=== PATIENT | female | born 1965 | race African-American/Black ===

== ENCOUNTER 2019-02-08 08:48 | Inpatient (IN) | payer BC ==
[2019-01-29 12:41] VITALS: BMI 27.2
--- NOTE | 2019-02-08 08:02 | HP ---
Admitting History and Physical - Admission Chief Complaint: failed right total knee arthroplasty History of Present Illness: 53 year old female presents in regard to her right knee. Status post a right knee arthroplasty. She notes continued pain, difficulty ambulating and difficulty completing activities of daily living. Patient has failed conservative treatment options including PO medications, injections , exercise programs and activity modifications. At this point, patient would like to proceed with recision right total knee arthroplasty. History Source: Patient - Past Medical History Cardiovascular: Yes: HTN ...LMP Comment: LMP 3 years ago Heme/Onc: Yes: Other (H/o breast CA) Musculoskeletal: Yes: Osteoarthritis - Past Surgical History Additional Past Surgical History: right total knee arthroplasty See written history & physical. - Advance Directives Advance Directives: Yes: Living Will, Health Care Proxy, Organ Donor - Smoking History Smoking history: Never smoked Have you smoked in the past 12 months: No - Alcohol/Substance Use Hx Alcohol Use: No Home Medications - Allergies Allergies/Adverse Reactions: Allergies Allergy/AdvReac Type Severity Reaction Status Date / Time diazepam [From Valium] Allergy somnolence Verified 01/29/19 12:54 metoclopramide [From Reglan] Allergy contraction Verified 01/29/19 12:50 ,spasticity Penicillins Allergy Hives Verified 01/29/19 12:54 - Home Medications Home Medications: Ambulatory Orders Aspirin [ASA -] 81 mg PO PRN 01/29/19 Biotin 1,000 mcg PO DAILY 01/29/19 Carvedilol [Coreg -] 25 mg PO BID 01/29/19 Letrozole [Femara -] 2.5 mg PO DAILY 01/29/19 Spironolactone 50 mg PO DAILY 01/29/19 Review of Systems - Review of Systems Musculoskeletal: reports: Decreased ROM (right knee), Joint Pain (right knee), Joint Swelling (right knee) Physical Examination Constitutional: Yes: Well Nourished, No Distress Eyes: Yes: Conjunctiva Clear HENT: Yes: Atraumatic Neck: Yes: Supple Cardiovascular: Yes: Regular Rate and Rhythm Respiratory: Yes: Regular Gastrointestinal: Yes: Soft ...Rectal Exam: Yes: Deferred Musculoskeletal: Yes: Joint Stiffness (right knee), Joint Swelling (right knee) Assessment/Plan 53 year old female presents in regard to her right knee. Status post a right knee arthroplasty. She notes continued pain, difficulty ambulating and difficulty completing activities of daily living. Patient has failed conservative treatment options including PO medications, injections , exercise programs and activity modifications. At this point, patient would like to proceed with recision right total knee arthroplasty. Pros, cons, risks, benefits and alternatives of a revision right total knee arthroplasty were discussed with the patient at length. Patient confirms her understanding and consents to proceed with a revision right total knee arthoplasty.
[~2019-02-08 08:48] MED LIST: CELECOXIB 200 MG CAPSULE PO ONE; GABAPENTIN 300 MG CAPSULE (FP) PO ONE; PANTOPRAZOLE 40 MG TABLET (FP) PO ONE; ROPIVICAINE 0.2%/MORPH PF/KETOROLAC - 51ML DISP.SYRINGE IA ONE; TRANEXAMIC ACID 1000 MG/10 ML VIAL IVPUSH ONE; oxyCODONE HCL 10 MG SUSTAINED ACTING TABLET PO ONE
[2019-02-08] MEDS ORDERED: PANTOPRAZOLE 40 MG TABLET (FP) ONE (09:10)
[2019-02-08] MEDS ORDERED: oxyCODONE HCL 10 MG SUSTAINED ACTING TABLET ONE (09:10)
[2019-02-08] MEDS ORDERED: GABAPENTIN 300 MG CAPSULE (FP) ONE (09:11)
[2019-02-08] MEDS ORDERED: CELECOXIB 200 MG CAPSULE ONE (09:11)
[2019-02-08] MEDS ORDERED: BUPIVACAINE LIPOSOME/PF (EXPAREL) 266 MG/20 ML VIAL ONE ×2 (10:30→11:41)
[2019-02-08] MEDS ORDERED: MIDAZOLAM HCL 2 MG/2 ML SINGLE DOSE VIAL ONE ×8 (10:30→17:24)
[2019-02-08] MEDS ORDERED: SODIUM CHLORIDE 0.9% P/F 10 ML VIAL IJ ONE ×2 (10:31→16:54)
[2019-02-08] MEDS ORDERED: CEFAZOLIN 2 GM in DEXTROSE 5%-WATER - 50 ML IVPB ONE (11:37)
[2019-02-08] MEDS ORDERED: TRANEXAMIC ACID 1000 MG/10 ML VIAL ONE ×3 (11:38→12:37)
[2019-02-08] MEDS ORDERED: ceFAZolin SODIUM 1 GM VIAL ONE ×4 (11:39→18:08)
[2019-02-08] MEDS ORDERED: VANCOMYCIN 1,000 MG VIAL (RESTRICTED TO ID ONLY) ONE (11:39)
[2019-02-08] MEDS ORDERED: BUPIVACAINE HCL/PF (5 MG/ML) 30 ML VIAL IJ ONE (11:42)
[2019-02-08] MEDS ORDERED: PROPOFOL 20 ML ONE (12:36)
[2019-02-08] MEDS ORDERED: ePHEDrine SULFATE 50 MG/1 ML AMPULE ONE ×2 (12:36→12:39)
[2019-02-08] MEDS ORDERED: SUCCINYLCHOLINE CHLORIDE 200 MG/10 ML VIAL ONE (12:36)
[2019-02-08] MEDS ORDERED: ONDANSETRON 4 MG/2 ML VIAL ONE (12:37)
[2019-02-08] MEDS ORDERED: DEXAMETHASONE SOD PHOSPHATE 4 MG/1 ML VIAL ONE (12:37)
[2019-02-08] MEDS ORDERED: PHENYLEPHRINE HCL 10 MG/1 ML SINGLE DOSE VIAL ONE (16:54)
[2019-02-08] MEDS ORDERED: BUPIVACAINE HCL/PF 0.5% (5MG/ML) 10 ML VIAL ONE (18:30)
[2019-02-08] MEDS ORDERED: METOPROLOL TARTRATE 5 MG/5 ML VIAL ONE (19:28)
[2019-02-08] MEDS ORDERED: ONDANSETRON 4 MG/2 ML VIAL IVPUSH PRN ×2 (19:35→20:18)
[2019-02-08] MEDS ORDERED: oxyCODONE HCL 5 MG TABLET PO PRN ×2 (19:35)
[2019-02-08] MEDS ORDERED: PROMETHAZINE HCL 25 MG/1 ML VIAL IVPUSH PRN (19:35)
[2019-02-08] MEDS ORDERED: MAG HYDROX/AL HYDROX/SIMETH 30 ML UNIT-DOSE CUP PO PRN (20:18)
[2019-02-08] MEDS ORDERED: MAGNESIUM HYDROX 2400MG/30ML ORAL SUSPENSION 30 ML CUP PO PRN (20:18)
[2019-02-08] MEDS ORDERED: ACETAMINOPHEN 1000 MG/100 ML VIAL (NON FORMULARY) IVPB ONE (20:20)
--- NOTE | 2019-02-08 20:25 | OP ---
Operative Note - Note: Operative Date: 02/08/19 Pre-Operative Diagnosis: Right knee stiff/painful TKA Operation: revision right TKA Findings: see dictation Post-Operative Diagnosis: Same as Pre-op Surgeon: Johnathon Martin Laboratory Assistant: Sylwia Pack Anesthesia: General, Spinal Estimated Blood Loss (mls): 750
[2019-02-08] MEDS ORDERED: traMADol HCL 50 MG TABLET PO SCH (20:30)
[2019-02-08] MEDS ORDERED: LACTATED RINGERS SOLUTION 1,000 ML IV SCH (20:30)
[2019-02-08] MEDS: KETOROLAC TROMETHAMINE 30 MG/1 ML VIAL IVPUSH SCH (20:40)
[2019-02-08] MEDS: ACETAMINOPHEN 325 MG TABLET (FP) PO SCH (22:44)
[2019-02-08] MEDS: oxyCODONE HCL 10 MG SUSTAINED ACTING TABLET PO SCH (22:53)
[2019-02-08] MEDS: ASCORBIC ACID 500 MG TABLET (FP) PO SCH (22:54)
[2019-02-08] MEDS: CARVEDILOL 25 MG TABLET (FP) PO SCH (22:54)
[2019-02-08] MEDS: SENNOSIDES/DOCUSATE COMBO (SENNA PLUS) TABLET (UD) PO SCH (22:54)
[2019-02-08] MEDS: CELECOXIB 200 MG CAPSULE PO SCH (22:55)
[2019-02-08] MEDS: GABAPENTIN 300 MG CAPSULE (FP) PO SCH (22:55)
[2019-02-09] MEDS: traMADol HCL 50 MG TABLET PO SCH ×4 (00:46→18:07)
[2019-02-09] MEDS: KETOROLAC TROMETHAMINE 30 MG/1 ML VIAL IVPUSH SCH ×4 (02:32→21:53)
[2019-02-09] MEDS: CEFAZOLIN 2 GM/D5W 2 GM/50 ML ML IVPB SCH ×2 (02:32→09:12)
[2019-02-09] MEDS: ACETAMINOPHEN 325 MG TABLET (FP) PO SCH ×4 (02:33→21:52)
[2019-02-09] MEDS ORDERED: DEXAMETHASONE SOD PHOSPHATE 10 MG/1 ML VIAL IVPB ONE (03:00)
[2019-02-09 08:10] LABS: HEMOGLOBIN 9.1 GM/dl (10.7-15.3); MCH 27.8 pg (25.7-33.7); MCHC 33.6 g/dl (32.0-36.0); MEAN CELL VOLUME 82.8 fl (80-96); MEAN PLT VOLUME 9.1 fl (7.5-11.1); PLATELET COUNT 157 K/MM3 (134-434); RBC 3.27 M/mm3 (3.60-5.2); RDW 12.9 % (11.6-15.6); WHITE BLOOD COUNT 12.1 K/mm3 (4.0-10.8)
[2019-02-09 08:18] LABS: CREATININE 0.9 mg/dl (0.55-1.3); POTASSIUM 5.9 mmol/L (3.5-5.1)
[2019-02-09] MEDS: ASPIRIN 325 MG TABLET PO SCH (08:23)
[2019-02-09] MEDS: CELECOXIB 200 MG CAPSULE PO SCH ×2 (09:12→21:51)
[2019-02-09] MEDS: SENNOSIDES/DOCUSATE COMBO (SENNA PLUS) TABLET (UD) PO SCH ×2 (09:13→21:51)
[2019-02-09] MEDS: PANTOPRAZOLE 40 MG TABLET (FP) PO SCH (09:13)
[2019-02-09] MEDS: LETROZOLE 2.5 MG TABLET (FP) PO SCH (09:13)
[2019-02-09] MEDS: MULTIVITAMINS (DAILY MVI) TABLET (FP) PO SCH (09:13)
[2019-02-09] MEDS: ASCORBIC ACID 500 MG TABLET (FP) PO SCH ×2 (09:14→21:51)
[2019-02-09] MEDS: SPIRONOLACTONE 25 MG TABLET (FP) PO SCH (09:14)
[2019-02-09] MEDS: GABAPENTIN 300 MG CAPSULE (FP) PO SCH ×2 (09:14→21:51)
[2019-02-09] MEDS: CARVEDILOL 25 MG TABLET (FP) PO SCH ×2 (09:14→21:53)
[2019-02-09] MEDS: oxyCODONE HCL 10 MG SUSTAINED ACTING TABLET PO SCH ×2 (09:15→21:52)
[2019-02-09] MEDS ORDERED: SODIUM CHLORIDE 0.9% 500 ML INFUS.BAG IV ONE (09:28)
[2019-02-09] MEDS ORDERED: ASPIRIN 325 MG ENTERIC COATED TABLET (FP) PO SCH (10:00)
--- NOTE | 2019-02-09 10:23 | PN ---
Progress Note (short form) - Note Progress Note: ANESTHESIA POSTOP 53 YO FEMALE POD#1 S/P R KNEE REVISION AND REPLACEMENT OF HARDWARE, SPINAL, PNB , GA Patient participating in PT. No complaints. Pain adequately controlled. No n/v. VSS, Afebrile Continue current care, encouraged IS and PT, No anesthetic complications
--- NOTE | 2019-02-09 12:20 | CONSULT ---
Consultation: REQUESTING PROVIDER: Dr. Johnathon Martin CONSULT REQUEST: We have been asked to medically evaluate this patient post- operatively. HISTORY OF PRESENT ILLNESS: 53 year-old female with a PMH significant for cardiomyopathy with AICD, ovarian cancer as a teenager s/p partial hysterectomy, and breast cancer s/p bilateral mastectomy (2017). She is s/p right total knee arthroplasty revision on 02/08/[address] Martin. PRIOR MEDICAL HISTORY Cardiomyopathy post (2001) Throat cancer Ovarian cancer Breast cancer PRIOR SURGICAL HISTORY AICD (09/2016) Partial hysterectomy (2001) Bilateral mastectomy (2018) Cancerous throat lump (age 4?) Appendectomy Tonsillectomy Gastric sleeve Abdominoplasty Inguinal hernia REVIEW OF SYSTEMS: CONSTITUTIONAL: Absent: fever, chills, diaphoresis, generalized weakness, malaise, loss of appetite, weight change HEENT: Absent: rhinorrhea, nasal congestion, throat pain, throat swelling, difficulty swallowing, mouth swelling, ear pain, eye pain, visual changes CARDIOVASCULAR: Absent: chest pain, syncope, palpitations, irregular heart rate, lightheadedness , peripheral edema RESPIRATORY: Absent: cough, shortness of breath, dyspnea with exertion, orthopnea, wheezing, stridor, hemoptysis GASTROINTESTINAL: Absent: abdominal pain, abdominal distension, nausea, vomiting, diarrhea, constipation, melena, hematochezia GENITOURINARY: Absent: dysuria, frequency, urgency, hesitancy, hematuria, flank pain, genital pain MUSCULOSKELETAL: +Right knee post-surgical pain Absent: myalgia, arthralgia, joint swelling, back pain, neck pain SKIN: Absent: rash, itching, pallor HEMATOLOGIC/IMMUNOLOGIC: Absent: easy bleeding, easy bruising, lymphadenopathy, frequent infections ENDOCRINE: Absent: unexplained weight gain, unexplained weight loss, heat intolerance, cold intolerance NEUROLOGIC: Absent: headache, focal weakness or paresthesias, dizziness, unsteady gait, seizure, mental status changes, bladder or bowel incontinence PSYCHIATRIC: Absent: anxiety, depression, suicidal or homicidal ideation, hallucinations. PHYSICAL EXAMINATION Vital Signs - 24 hr 02/08/19 02/08/19 02/08/19 19:47 19:52 19:57 Temperature 98.4 F Pulse Rate 107 H 105 H 101 H Respiratory 12 15 17 Rate Blood Pressure 99/65 103/65 105/59 L O2 Sat by Pulse 97 97 96 Oximetry (%) GENERAL: Awake, alert, and fully oriented, in no acute distress. HEAD: Normal with no signs of trauma. LUNGS: Breath sounds equal, clear to auscultation bilaterally. No wheezes, and no crackles. No accessory muscle use. HEART: Regular rate and rhythm, S1 and S2 ABDOMEN: Soft, nontender, not distended, normoactive bowel sounds UPPER EXTREMITIES: 2+ pulses, warm, well-perfused. No cyanosis. No clubbing. Cap refill <2 seconds. No peripheral edema. LOWER EXTREMITIES: 2+ pulses, warm, well-perfused. No calf tenderness. No peripheral edema. right leg knee immobilizer in place with ice pack; surgical wound not visualized; able to flex to 30 degrees sitting in chair NEUROLOGICAL: Cranial nerves II-XII intact. Normal speech. Laboratory Results - last 24 hr 02/08/19 02/08/19 02/09/19 17:10 17:15 07:42 WBC 12.1 H RBC 3.27 L Hgb 9.1 L Hct 27.0 L MCV 82.8 MCH 27.8 MCHC 33.6 RDW 12.9 Plt Count 157 MPV 9.1 Sodium Potassium Chloride Carbon Dioxide Anion Gap BUN Creatinine Est GFR (CKD-EPI)AfAm Est GFR (CKD-EPI)NonAf Random Glucose Calcium Blood Type O POSITIVE O POSITIVE Antibody Screen Negative Crossmatch IS Only See Detail 02/09/19 07:42 WBC RBC Hgb Hct MCV MCH MCHC RDW Plt Count MPV Sodium 132 L Potassium 5.9 H Chloride 102 Carbon Dioxide 24 Anion Gap 6 L BUN 29.0 H Creatinine 0.9 Est GFR (CKD-EPI)AfAm 84.61 Est GFR (CKD-EPI)NonAf 73.00 Random Glucose 140 H Calcium 8.0 L Blood Type Antibody Screen Crossmatch IS Only Active Medications Generic Name Dose Route Start Last Admin Trade Name Freq PRN Reason Stop Dose Admin Acetaminophen 650 mg 02/08/19 19:45 02/09/19 07:08 Tylenol - PO 02/11/19 19:44 650 mg Q6H ALETA Administration Al Hydroxide/Mg Hydroxide 30 ml 02/08/19 20:18 Mylanta Oral Suspension - PO Q4H PRN DYSPEPSIA Ascorbic Acid 500 mg 02/08/19 22:00 02/09/19 09:14 Vitamin C - PO 500 mg BID ALETA Administration Aspirin 325 mg 02/09/19 08:00 02/09/19 08:23 Asa - PO 325 mg DAILY@0800 ALETA Administration Aspirin 325 mg 02/09/19 10:00 Ecotrin - PO DAILY [facility] Carvedilol 25 mg 02/08/19 22:00 02/09/19 09:14 Coreg - PO 25 mg BID ALETA Administration Celecoxib 200 mg 02/08/19 22:00 02/09/19 09:12 Celebrex - PO 200 mg BID [facility] Administration Fentanyl 50 mcg 02/08/19 22:21 Sublimaze Injection - IVPUSH Q5M PRN PAIN-PACU ORDER X 4 DOSES ONLY Gabapentin 300 mg 02/08/19 22:00 02/09/19 09:14 Neurontin - PO 02/11/19 21:59 300 mg BID [facility] Administration Ketorolac Tromethamine 30 mg 02/08/19 20:30 02/09/19 08:23 Toradol Injection - IVPUSH 02/10/19 02:31 30 mg Q6H [facility] Administration Letrozole 2.5 mg 02/09/19 10:00 02/09/19 09:13 Femara - PO 2.5 mg DAILY [facility] Administration Magnesium Hydroxide 30 ml 02/08/19 20:18 Milk Of Magnesia - PO PRN PRN CONSTIPATION Multivitamins/Minerals/Vitamin C 1 tab 02/09/19 10:00 02/09/19 09:13 Tab-A-Vit - PO 1 tab DAILY [facility] Administration Ondansetron HCl 4 mg 02/08/19 19:35 Zofran Injection IVPUSH Q6H PRN NAUSEA AND/OR VOMITING Ondansetron HCl 4 mg 02/08/19 20:18 Zofran Injection IVPUSH Q6H PRN NAUSEA Oxycodone HCl 5 mg 02/08/19 19:35 Roxicodone - PO Q3H PRN PAIN LEVEL 1-5 Oxycodone HCl 10 mg 02/08/19 19:35 02/09/19 06:37 Roxicodone - PO 10 mg Q3H PRN Administration PAIN LEVEL 6-10 Oxycodone HCl 10 mg 02/08/19 22:00 02/09/19 09:15 Oxycontin - PO 02/11/19 19:36 Not Given BID [facility] Pantoprazole Sodium 40 mg 02/09/19 10:00 02/09/19 09:13 Protonix - PO 40 mg DAILY ALETA Administration Promethazine HCl 12.5 mg 02/08/19 19:35 Phenergan Injection - IVPUSH Q6H PRN NAUSEA-FOR RESCUE AFTER 15 MIN Senna/Docusate Sodium 2 tablet 02/08/19 22:00 02/09/19 09:13 Pericolace - PO 2 tablet BID ALETA Administration Spironolactone 50 mg 02/09/19 10:00 02/09/19 09:14 Aldactone - PO Not Given DAILY ALETA Tramadol HCl 50 mg 02/08/19 22:21 02/09/19 06:36 Ultram - PO 50 mg Q6HPO ALETA Administration ASSESSMENT/PLAN: 53 year-old female with a PMH significant for cardiomyopathy with AICD, ovarian cancer as a teenager s/p partial hysterectomy, and breast cancer s/p bilateral mastectomy (2018). She is s/p right total knee arthroplasty revision on 02/08/[address] Martin. 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 Thank you for this consultative opportunity. Visit type - Emergency Visit Emergency Visit: No - New Patient This patient is new to me today: Yes Date on this admission: 02/09/19 - Critical Care Critical Care patient: No
--- NOTE | 2019-02-09 20:48 | PN ---
Progress Note (short form) - Note Progress Note: Pt seen and examined. Doing well. Has foot drop and numbness in lower leg. BP low but pt states she always runs low. AVSS Selected Entries 02/09/19 02/09/19 02/09/19 14:30 18:00 20:20 Temperature 98.4 F Pulse Rate 71 64 Respiratory 18 18 Rate Blood Pressure 92/64 O2 Sat by Pulse 100 Oximetry (%) Oxygen Delivery Room Air Method Laboratory Tests 02/09/19 02/09/19 07:42 07:42 WBC 12.1 H Hgb 9.1 L Hct 27.0 L Plt Count 157 Sodium 132 L Potassium 5.9 H Chloride 102 Carbon Dioxide 24 Anion Gap 6 L BUN 29.0 H Creatinine 0.9 Est GFR (CKD-EPI)AfAm 84.61 Est GFR (CKD-EPI)NonAf 73.00 Random Glucose 140 H Calcium 8.0 L Gen: NAD RLE: c/d/i, 0/5 TA/EHL A/P POD #1 s/p revision right TKA Doing well PT/OOB Foot drop is likely from nerve block and should resolve in the next 1-2 days. D/C home in AM, f/u in office in 10-14 days
--- NOTE | 2019-02-09 21:02 | DS ---
Physical Examination Vital Signs: Vital Signs Temperature 98.4 F 02/09/19 18:00 Pulse Rate 64 02/09/19 18:00 Respiratory Rate 18 02/09/19 20:20 Blood Pressure 93/57 L 02/09/19 18:00 O2 Sat by Pulse Oximetry (%) 100 02/09/19 20:20 Labs: CBC, BMP 02/09/19 07:42 02/09/19 07:42 Discharge Summary Reason For Visit: RIGHT KNEE OSTEOARTHRITIS Current Active Problems Failed total right knee replacement (Acute) Procedures: Principal: revision right TKA Hospital Course: Admitted for elective surgery. Procedure performed without complications. Pt received postoperative antibiotic prophylaxis and DVT ppx. Ambulated with physical therapy. Stable for discharge home with outpatient followup. Condition: Stable - Instructions Diet, Activity, Other Instructions: Dr. Martin - Knee Replacement Instructions Keep the Aquacel dressing on until removed by Dr. Martin in 10-14 days - it is antibacterial and waterproof and you can shower with it on. Call the office for a follow-up appointment with Dr. Martin in 10-14 days. [phone] Take one Aspirin 325mg daily for 6 weeks to prevent blood clots in your legs. Take one Pantoprazole 40mg daily for 6 weeks to protect against heartburn and ulcers. Take Cephalexin (antibiotic) 3x/day for 10 days to help prevent skin infection. Take Celebrex 200mg twice daily for 30 days to reduce swelling and inflammation. Take a multivitamin, stool softener, and extra Vitamin C supplement daily. For pain: *Mild pain (1-3/10): Take 1 Tramadol tablet every 4 hours as needed. Moderate pain (4-6/10): Take 1 Tramadol tablet and 1 Percocet tablet every 4 hours as needed. Severe pain (7-10/10): Take 1 Tramadol tablet and 2 Percocet tablets every 4 hours as needed. Activity: You can put as much weight on the operative leg as you want. Right after you get home, there will be a physical therapist coming to your house to help you walk around and bend/straighten your knee. After your follow-up appointment, you will be sent for more intensive outpatient physical therapy which will include machines and equipment that the home therapist cannot bring to your house. Always use a walker or cane for balance and to prevent falls. Expect to see significant redness/warmth/swelling/bruising from the operative site all the way down to your toes. Postop swelling can last for several weeks to up to 6 months. Wear the compression stocking on the operative side during the day to minimize how much swelling there is in your foot/ankle. Don't wear the stocking at night. You don't have to wear a stocking on the other side. Disposition: VNS/HOME HEALTH CARE - Home Medications Comprehensive Discharge Medication List: Ambulatory Orders Biotin 1,000 mcg PO DAILY 01/29/19 Carvedilol [Coreg -] 25 mg PO BID 01/29/19 Letrozole [Femara -] 2.5 mg PO DAILY 01/29/19 Spironolactone 50 mg PO DAILY 01/29/19 Ascorbic Acid [Vitamin C -] 500 mg PO BID tablet 02/09/19 Aspirin Coated [Ecotrin -] 325 mg PO DAILY tablet. 02/09/19 Celecoxib [CeleBREX -] 200 mg PO BID #60 capsule 02/09/19 Cephalexin Monohydrate [Keflex -] 500 mg PO TID #30 capsule 02/09/19 Multivitamins [Multivit ([facility] Formulary)] 1 tab PO DAILY tab 02/09/19 Oxycodone HCl/Acetaminophen [Percocet 5-325 mg Tablet] 1 - 2 tab PO Q4H PRN #60 tablet MDD 10 02/09/19 Pantoprazole Sodium [Protonix -] 40 mg PO DAILY #40 tablet.ec 02/09/19 Sennosides/Docusate Sodium [Pericolace -] 2 tablet PO BID tablet 02/09/19 traMADol HCL [Ultram -] 50 mg PO Q4H PRN #42 tablet MDD 6 02/09/19
[2019-02-10] MEDS: traMADol HCL 50 MG TABLET PO SCH ×3 (05:51→12:00)
[2019-02-10] MEDS: KETOROLAC TROMETHAMINE 30 MG/1 ML VIAL IVPUSH SCH (05:52)
[2019-02-10] MEDS: ACETAMINOPHEN 325 MG TABLET (FP) PO SCH ×2 (05:53→15:06)
[2019-02-10 06:14] VITALS: TEMP 98.6
[2019-02-10] MEDS: ASPIRIN 325 MG TABLET PO SCH (08:20)
[2019-02-10 08:25] LABS: HEMATOCRIT 23.3 % (32.4-45.2); HEMOGLOBIN 7.8 GM/dl (10.7-15.3); MCH 27.9 pg (25.7-33.7); MCHC 33.3 g/dl (32.0-36.0); MEAN CELL VOLUME 83.8 fl (80-96); MEAN PLT VOLUME 8.8 fl (7.5-11.1); PLATELET COUNT 190 K/MM3 (134-434); RBC 2.78 M/mm3 (3.60-5.2); RDW 13.1 % (11.6-15.6); WHITE BLOOD COUNT 7.8 K/mm3 (4.0-10.8)
--- NOTE | 2019-02-10 08:31 | PN ---
Physical Exam: SUBJECTIVE: Patient seen and examined, reports feeling better, Rt pain pain controlled with pain meds, denies cp, sob, palpitations, abdominal pain, N/V/D or urinary symptoms. OBJECTIVE: Vital Signs Period Temp Pulse Resp BP Sys/Marquez Pulse Ox Last 24 Hr 97.7 F-98.6 F 58-75 17-19 77-118/46-64 99-100 GENERAL: The patient is awake, alert, and fully oriented, in no acute distress. HEAD: Normal with no signs of trauma. EYES: PERRL, extraocular movements intact, sclera anicteric, conjunctiva clear. No ptosis. ENT: Ears normal, nares patent, oropharynx clear without exudates, moist mucous membranes. NECK: Trachea midline, full range of motion, supple. LUNGS: Breath sounds equal, clear to auscultation bilaterally, no wheezes, no crackles, no accessory muscle use. HEART: Regular rate and rhythm, S1, S2 without murmur, rub or gallop. ABDOMEN: Soft, nontender, nondistended, normoactive bowel sounds, no guarding, no rebound, no hepatosplenomegaly, no masses. EXTREMITIES: 2+ pulses, warm, well-perfused, RT knee dsg intact , + mild edema. NEUROLOGICAL: Cranial nerves II through XII grossly intact. Normal speech, gait not observed. PSYCH: Normal mood, normal affect. SKIN: Warm, dry, normal turgor, no rashes or lesions noted Laboratory Results - last 24 hr 02/09/19 07:42 Sodium 132 L Potassium 5.9 H Chloride 102 Carbon Dioxide 24 Anion Gap 6 L BUN 29.0 H Creatinine 0.9 Est GFR (CKD-EPI)AfAm 84.61 Est GFR (CKD-EPI)NonAf 73.00 Random Glucose 140 H Calcium 8.0 L Active Medications Generic Name Dose Route Start Last Admin Trade Name Freq PRN Reason Stop Dose Admin Acetaminophen 650 mg 02/08/19 19:45 02/10/19 05:53 Tylenol - PO 02/11/19 19:44 650 mg Q6H ALETA Administration Al Hydroxide/Mg Hydroxide 30 ml 02/08/19 20:18 Mylanta Oral Suspension - PO Q4H PRN DYSPEPSIA Ascorbic Acid 500 mg 02/08/19 22:00 02/09/19 21:51 Vitamin C - PO 500 mg BID ALETA Administration Aspirin 325 mg 02/09/19 08:00 02/10/19 08:20 Asa - PO 325 mg DAILY@0800 ALETA Administration Carvedilol 25 mg 02/09/19 12:59 02/09/19 21:53 Coreg - PO Not Given BID [facility] Celecoxib 200 mg 02/08/19 22:00 02/09/19 21:51 Celebrex - PO 200 mg BID ALETA Administration Fentanyl 50 mcg 02/08/19 22:21 Sublimaze Injection - IVPUSH Q5M PRN PAIN-PACU ORDER X 4 DOSES ONLY Gabapentin 300 mg 02/08/19 22:00 02/09/19 21:51 Neurontin - PO 02/11/19 21:59 300 mg BID ALETA Administration Letrozole 2.5 mg 02/09/19 10:00 02/09/19 09:13 Femara - PO 2.5 mg DAILY ALETA Administration Magnesium Hydroxide 30 ml 02/08/19 20:18 Milk Of Magnesia - PO PRN PRN CONSTIPATION Multivitamins/Minerals/Vitamin C 1 tab 02/09/19 10:00 02/09/19 09:13 Tab-A-Vit - PO 1 tab DAILY [facility] Administration Ondansetron HCl 4 mg 02/08/19 19:35 Zofran Injection IVPUSH Q6H PRN NAUSEA AND/OR VOMITING Ondansetron HCl 4 mg 02/08/19 20:18 Zofran Injection IVPUSH Q6H PRN NAUSEA Oxycodone HCl 5 mg 02/08/19 19:35 Roxicodone - PO Q3H PRN PAIN LEVEL 1-5 Oxycodone HCl 10 mg 02/08/19 19:35 02/09/19 06:37 Roxicodone - PO 10 mg Q3H PRN Administration PAIN LEVEL 6-10 Oxycodone HCl 10 mg 02/08/19 22:00 02/09/19 21:52 Oxycontin - PO 02/11/19 19:36 10 mg BID ALETA Administration Pantoprazole Sodium 40 mg 02/09/19 10:00 02/09/19 09:13 Protonix - PO 40 mg DAILY ALETA Administration Promethazine HCl 12.5 mg 02/08/19 19:35 Phenergan Injection - IVPUSH Q6H PRN NAUSEA-FOR RESCUE AFTER 15 MIN Senna/Docusate Sodium 2 tablet 02/08/19 22:00 02/09/19 21:51 Pericolace - PO 2 tablet BID ALETA Administration Spironolactone 50 mg 02/09/19 10:00 02/09/19 09:14 Aldactone - PO Not Given DAILY ALETA Tramadol HCl 50 mg 02/08/19 22:21 02/10/19 05:52 Ultram - PO 50 mg Q6HPO ALETA Administration ASSESSMENT/PLAN: 53 year-old female with a PMH significant for cardiomyopathy with AICD, ovarian cancer as a teenager s/p partial hysterectomy, and breast cancer s/p bilateral mastectomy (2018). She is s/p right total knee arthroplasty revision on 02/08/[address] Martin. 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 Visit type - Emergency Visit Emergency Visit: No - New Patient This patient is new to me today: No - Critical Care Critical Care patient: No
[2019-02-10] MEDS: LETROZOLE 2.5 MG TABLET (FP) PO SCH (10:16)
[2019-02-10] MEDS: SPIRONOLACTONE 25 MG TABLET (FP) PO SCH (10:16)
[2019-02-10] MEDS: MULTIVITAMINS (DAILY MVI) TABLET (FP) PO SCH (10:16)
[2019-02-10] MEDS: CELECOXIB 200 MG CAPSULE PO SCH (10:17)
[2019-02-10] MEDS: GABAPENTIN 300 MG CAPSULE (FP) PO SCH (10:17)
[2019-02-10] MEDS: SENNOSIDES/DOCUSATE COMBO (SENNA PLUS) TABLET (UD) PO SCH (10:17)
[2019-02-10] MEDS: oxyCODONE HCL 10 MG SUSTAINED ACTING TABLET PO SCH (10:17)
[2019-02-10] MEDS: ASCORBIC ACID 500 MG TABLET (FP) PO SCH (10:17)
[2019-02-10] MEDS: CARVEDILOL 25 MG TABLET (FP) PO SCH (10:18)
[2019-02-10] MEDS: PANTOPRAZOLE 40 MG TABLET (FP) PO SCH (10:18)
[2019-02-10 10:24] LABS: CALCIUM 8.1 mg/dl (8.5-10); CREATININE 0.7 mg/dl (0.55-1.3); POTASSIUM 3.6 mmol/L (3.5-5.1)
[2019-02-10] MEDS ORDERED: ACETAMINOPHEN 325 MG TABLET (FP) PO SCH (11:45)
[2019-02-10 11:49] VITALS: BP 90/52; PULSE 76
--- NOTE | 2019-02-14 16:31 | PATH ---
Surgical Pathology Report Patient Name: ERICH SALVADOR Med. Rec. #: [id number] /Age/Gender: 1965 (Age: 53) / F Account: [id number] Location: [facility] Taken: 02/08/2019 Received: 02/08/2019 Reported: 02/14/2019 Physicians: Johnathon Martin M.D. Specimen(s) Received EXPLANTED HARDWARE RIGHT KNEE Clinical History Right knee osteoarthritis Final Diagnosis HARDWARE, RIGHT KNEE, EXPLANT: HARDWARE, DESCRIBED (GROSS EXAMINATION ONLY). Electronically Signed Marnie Marquez M.D. Gross Description Received fresh labeled "explanted hardware right knee," are 2 white plastic and 2 bey metallic portions of hardware ranging from 3.4 x 3.0 x 0.9 cm to 6.5 x 6.0 x 4.0 cm, consistent with knee hardware. No soft tissue is present. No sections are submitted, gross only. /02/12/2019 saudi02/12/2019
--- NOTE | 2019-02-20 02:21 | OP ---
DATE OF OPERATION: 02/08/2019 PREOPERATIVE DIAGNOSIS: Failed right total knee replacement/arthrofibrosis. POSTOPERATIVE DIAGNOSIS: Failed right total knee replacement/arthrofibrosis. PROCEDURE: Complete revision of right total knee replacement; femoral, tibial, and patellar components. ATTENDING SURGEON: Gabino Andino MD TENNIS NET MAKER: SHIMON Chávez ANESTHESIA: Spinal plus general. ESTIMATED BLOOD LOSS: 750 mL. COMPLICATIONS: None. DISPOSITION: The patient was transferred to the PACU in stable condition. IMPLANTS USED: Omayra Triathlon TS size 2 femoral component with medial and lateral 10-mm distal femoral augments and medial and lateral 5-mm posterior femoral augments, [employer]field Triathlon TS size 2 tibial component with medial and lateral 5-mm augments, 50 x 15-mm femoral stem, 50 x 15-mm tibial stem, 32-mm patellar component, 13-mm total stabilized polyethylene component. INDICATIONS: This is a 54-year-old female who presents to the office complaining of severe right knee pain and stiffness after total knee replacement. She had total knee replacement performed in December 2017, but from the beginning had limited range of motion and did not progress with physical therapy. She was initially treated nonoperatively with physical therapy and observation and instructed to wait until 1 year had passed from the index surgery to gauge what could be considered the final outcome of the procedure. She reached close to 1 year postoperative and continued to have no improvement in her range of motion as well as severe pain at the terminal ends of the range of motion. As measured preoperatively, her range of motion was 15 to 80 degrees. This severely affected her day-to-day activities as well as her preferred sport, which was running. The patient, after having tried all manner of exercises, therapy, and nonoperative treatments, was not satisfied with the outcome of this procedure. Although x-rays seemed to show implants properly in place, she elected to proceed with revision with excision of scar tissue and placement of new revision components. The risks, benefits, and alternatives to the procedure were explained to the patient in great detail and she elected to proceed with the surgery. DESCRIPTION OF PROCEDURE: On the day of surgery, the patient was taken to the operating room and placed on the OR table. Spinal anesthesia was administered by the anesthesiologist. The patient was then positioned supine on the table and all bony prominences were padded. The right lower extremity was then prepped and draped in the usual sterile fashion. Intravenous antibiotics were given for infection prophylaxis. A surgical timeout was then performed with the team and the patient's identity, procedure, side, availability of implants, and the administration of antibiotics were confirmed. With the patient under anesthesia, preoperative range of motion was checked and was found to be 15 to 80 degrees with firm endpoints both in flexion and extension. With the knee flexed, a midline incision was made and carried down through the subcutaneous fat to the underlying retinaculum. This incision incorporated the previous knee replacement incision scar. A medial parapatellar arthrotomy was performed. This was followed by a subperiosteal dissection of tissue off of the proximal and medial tibia. A portion of fat pad and scar tissue were removed from under the patellar tendon, which was found to be fibrotic and thickened. A large amount of scar tissue was excised off of the distal supracondylar femur as well. Additional arthrolysis was performed and scar tissue was removed using electrocautery and sharp dissection to reestablish the medial and lateral gutters. The knee was then flexed further and the polyethylene insert was removed to create space to work and to provide greater visualization of the components. We did note a large osteophyte on the posterolateral tibia, which appeared to be impinging with the posterior femur. With the polyethylene removed, the range of motion of the knee had improved in flexion and when we replaced the polyethylene, which was a rotating platform-type implant, we found that the range of motion again decreased to 80 degrees of flexion as the osteophyte on the posterolateral tibia impinged on the posterior condyle of the femur. It was determined at this point, that full revision would be performed and the components would be removed in order to have access to both the posterior capsule, which was significantly scarred and thickened as well as any additional posterior tibial and/or femoral osteophytes and/or bone formations that may have been causing impingement. Since we were revising the entire knee replacement to a Omayra prosthetic, it was determined that the patella would be revised as well as the shape of the existing patellar component did not match that of the Omayra patellar component and may lead to poor compatibility with the trochlear shape of the Buckfield femoral implant. The patella was then everted and held in place with towel clips. A microsagittal saw was used to resect the patella at the implant-cement interface and the patellar component was removed, leaving a clean cut surface of bone with some cement debris, which was left to be further prepared later in the case. Ananya retractors were then placed around the distal femur. Microsagittal saw and flexible osteotomes were used to separate the femoral component from the underlying bone, taking care to work at the implant-cement interface to preserve as much bone stock as possible. The femoral component was freed at every interface with bone and easily removed with minimal bone loss. Attention was then turned to the tibia. Similarly, a microsagittal saw and flexible osteotomes were used to separate the tibial component from the underlying bone, again taking care to preserve as much bone stock as possible. The tibia was then visualized and the posterior osteophyte was fully seen. This was fairly large and it was removed partially with rongeurs in order to allow greater access to the posterior capsule. The posterior femoral condyles were palpated and there was found to be significant posterior femoral osteophyte present as well. Electrocautery was used to separate the posterior capsule from the posterior femur to allow for greater range of motion and extension and also to allow for greater access to the posterior femoral osteophytes. A large portion of the posterior capsule, which was thickened, was excised, taking great care to stay superficial to avoid the neurovascular structures and tendons that were present in the popliteal fossa. Once this tissue had been excised, curved osteotomes were used to assess the posterior femoral osteophytes and these were removed on both the medial and lateral femoral condyles. The femur was then palpated to be sure that no additional osteophyte remained that could potentially impinge and limit range of motion when the new prosthetic was placed. Ananya retractors were then used to translate the tibia anteriorly and protect the medial and lateral collateral ligaments. The proximal tibia was cut preliminarily with a saw. Once this was completed, the drill and reverse cement removal curettes were used to removed remaining cement in the keel of the removed prosthesis thus also allowing access to the tibial intramedullary canal. Successively larger reamers were then used to ream the tibial canal until endosteal chatter was felt. Once this was accomplished, the reamer was left in place and the cutting block from the [employer] tibial preparation instrument set was attached to the reamer and the proximal tibia was cut with the saw to create a flat surface for implant placement. This also accomplished removal of the previously found posterior osteophyte. Once this was completed, attention was turned to the femur. Successively larger reamers were used to ream the intramedullary canal of the femur. Once endosteal chatter was felt, the final reamer was left in place and the distal femoral cutting block in the [employer] femoral preparation set was placed over the reamed and used to guide our cuts for the distal femur. We determined that 10-mm augments were necessary based on the amount of bone loss in this area. Similarly, a 4-in-1 cutting block was placed and used to make the anterior, posterior, and chamfer cuts in the femur. This also allowed us to determine that a 5-mm posterior augment was necessary medially and laterally because of bone loss in these areas. Once this was completed, the final femoral notch cuts were made and trial components were placed on both the femur and tibia. The knee was taken through full range of motion and soft tissue balance was assessed in both flexion and extension. Various adjustments were made in augment and polyethylene thickness until soft tissue balance was found to be excellent and the knee was stable through the full range of motion and also had improved flexion and extension range. Attention was turned back to the patella, which was everted and held with towel clips. An oscillating saw was used to cut the patellar surface flush, removing any traces of cement and creating a flat surface for new implant placement. Patellar surfaces were then drilled with the drill guide for the Omayra patellar component and a trial patella was placed. The knee was again taken through full range of motion and found to have good patellar tracking. All of the components were removed. Tourniquet was inflated to 275 mmHg. All bony surfaces were then cleaned with pulsatile lavage and dried. Bone cement was then prepared on the back table and the final components were assembled and cemented in place in the usual fashion. Extruded cement was removed. The polyethylene trial was placed. The knee was put into extension and axial pressure was applied for compression while the cement hardened. Once the cement had hardened, the knee was taken through full range of motion to assess stability, balance, and patellar tracking. These were all found to be improved compared to preop and within expected values. The trial polyethylene was then exchanged for the same size real implant. The wound was then thoroughly irrigated with normal saline. A 3-minute dilute-betadine lavage was performed according to the GRANDIN protocol. Following this, the wound was again thoroughly irrigated with normal saline via pulsatile lavage. This saline also contained 3 g of Ancef and 3 L of saline for additional infection prophylaxis. Vancomycin powder was placed into the wound and number 1 Vicryl, number 2 FiberWire, and number 0 V-Loc 180 barbed sutures were used to close the arthrotomy. Number 1 Vicryl and 2-0 V-Loc 90 sutures were used in the subcutaneous tissues. The skin was closed using both 3-0 V-Loc 90 suture in a running subcuticular fashion and Dermabond skin adhesive. Once this was completed, a sterile Aquacel dressing was applied. The tourniquet was then deflated and the patient was awakened and taken to the PACU in stable condition. GABINO ANDINO M.D. [id number]
== END 2019-02-10 12:30 | disposition home health service (06) | DRG 908 ==
LOC: UNDOADMIN 08:48 → FM/S 08:48
PROVIDERS: ADMIT Student in an Organized Health Care Education/Training Program; ATTEND Student in an Organized Health Care Education/Training Program
PROC: 0SWC0JZ Revision of Synthetic Substitute in Right Knee Joint, Open Approach (ICD-10-PCS; principal; 2019-02-08 12:59)
DX: T85.898A Other specified complication of other internal prosthetic devices, implants and grafts, initial encounter (principal); I42.9 Cardiomyopathy, unspecified; D62 Acute posthemorrhagic anemia; Y83.9 Surgical procedure, unspecified as the cause of abnormal reaction of the patient, or of later complication, without mention of misadventure at the time of the procedure; Z85.3 Personal history of malignant neoplasm of breast; Z85.43 Personal history of malignant neoplasm of ovary
CPT/HCPCS: 36415; 73560-TC-RT-FY; 80048; 85027; 86850; 86900; 86901; 86922; 88300-TC; 94760; 97116-GP; 97163-GP; J0131; J1100